=== PATIENT | female | born 1965 | race Caucasian/White ===

== ENCOUNTER → 2019-03-08 | Outpatient (CLI) | payer OTHER ==
[2019-03-08 18:14] LABS: HEMATOCRIT 40.2 % (36.0-47.0); HEMOGLOBIN 12.9 g/dl (12.0-15.5); MEAN CORPUSCULAR HEMOGLOBIN 28.7 pg (27.0-33.0); MEAN CORPUSCULAR HGB CONC 32.1 g/dl (32.0-36.5); MEAN CORPUSCULAR VOLUME 89.3 fl (80.0-96.0); PLATELET COUNT, AUTOMATED 291 10^3/uL (150-450); WHITE BLOOD COUNT 6.5 10^3/uL (4.0-10.0)
[2019-03-08 18:56] LABS: COLLAGEN EPINEPHRINE 128 SECONDS (74-162)
[2019-03-11 09:21] LABS: F8 ACTIVITY FOR F8 PANEL 62 % (56-140); F8 ACTIVITY vWB FOR F8 PANEL 73 % (50-200); F8 ANTIGEN FOR F8 PANEL 107 % (50-200)
== END ==
LOC: M LAB 17:41
PROVIDERS: ATTEND Physician Assistant
DX: R23.8 Other skin changes (principal)

== ENCOUNTER → 2021-01-22 | Outpatient (CLI) | payer OTHER ==
[2021-01-22 19:27] LABS: COLLAGEN EPINEPHRINE 113 SECONDS (74-162)
== END ==
LOC: M LAB 16:50
PROVIDERS: ATTEND Ophthalmology
DX: L72.0 Epidermal cyst (principal)

== ENCOUNTER → 2025-01-24 | Outpatient (CLI) | payer OTHER ==
[~2025-01-24] MED LIST: AMLO1TAB24; ATOR40TA75; FLUTISP; HYDR12CA; ISOVUE-370 76% 100ML VIAL ONE; METR0.7526
== END ==
LOC: M PLAIMG 14:35
PROVIDERS: ATTEND Internal Medicine Medical Oncology
DX: R59.0 Localized enlarged lymph nodes (principal)
CPT/HCPCS: 71260; Q9967